=== PATIENT | male | born 1965 | race Caucasian/White ===

== ENCOUNTER 2020-07-17 12:27 | Emergency (ER) | payer SELFPAY ==
[~2020-07-17] VITALS: Ht 167.6 cm; Wt 111.6 kg
[2020-07-17 12:41] VITALS: BP 123/86
--- NOTE | 2020-07-17 12:46 | NUR ---
C/O FEVER X 6 DAYS,COUGH X 4 DAYS. TOOK TYLENOL 2 HOURS AGO. TEMP 97.9 AT THIS TIME. MED HX: HTN. PATIENT STATES PAIN OF 0/10 AT THIS TIME.
--- NOTE | 2020-07-17 13:34 | NUR ---
COVID SWAB DONE,SENT TO LAB.
--- NOTE | 2020-07-17 14:06 | NUR ---
Patient discharged with v/s stable. Written and verbal after care instructions given and explained. Patient verbalized understanding. Ambulatory with steady gait. All questions addressed prior to discharge. Advised to follow up with PMD.
[2020-07-17 14:07] VITALS: BP 123/86
--- NOTE | 2020-07-19 10:21 | NUR ---
Covid results received from lab. Results = NEGATIVE. Hard copy requested from lab and placed in infection controls mailbox.
== END 2020-07-17 14:06 | disposition home or self-care (01) ==
LOC: MED 12:27
DX: M79.10 Myalgia, unspecified site (principal); J02.9 Acute pharyngitis, unspecified; R05 Cough; I10 Essential (primary) hypertension; Z20.828 Contact with and (suspected) exposure to other viral communicable diseases
CPT/HCPCS: 71045; 99284; U0003